=== PATIENT | female | born 1950 | race Caucasian/White ===

== ENCOUNTER 2017-08-19 16:52 | Emergency (ER) | payer MEDICARE ==
[2017-08-19 17:10] VITALS: BP 138/88; PULSE 99; O2SAT 99
[2017-08-19] MEDS ORDERED: DELTASONE 20 MG PO ONE (17:13)
[2017-08-19] MEDS ORDERED: Vibramycin 100 MG PO ONE (17:13)
[2017-08-19] MEDS ORDERED: DELTASONE 20 MG ONE (17:16)
[2017-08-19] MEDS ORDERED: Vibramycin 100 MG ONE (17:18)
--- NOTE | 2017-08-19 17:19 | ERPHSYRPT ---
- History of Present Illness Time Seen by Provider: 08/19/17 16:59 Source: patient Patient Subjective Stated Complaint: PT REPORTS SHE HAS BEEN COUGHING FOR THE LAST FEW DAYS-STATES SHE BEGAN COUGHING YELLOW SPUTUM-RUNNING TEMP OF 99-DENIES N/V/D Triage Nursing Assessment: PT PINK WARM ET [id number] TO ED ROOM- CONGESTION NOTED-HARSH COUGH NOTED DURING TRIAGE-NO RETRACTIONS-LUNGS CLEAR Physician History: CC: cough Hx: 67 y/o patient of Dr Rc Seaman with cough for a few days, rattling. No fever. Has proair inhaler but no spacer. Formerly used inhaled steroid. Symptoms moderate. Not dyspenic. Allergies/Adverse Reactions: ampicillin trihydrate [From Polycillin] Allergy (Verified 08/19/17 16:59) Rash Home Medications: Levothyroxine Sodium 100 Mcg [Synthroid 100 Mcg] 100 mcg PO DAILY 11/05/15 [History] Hx Tetanus, Diphtheria Vaccination/Date Given: No Hx Influenza Vaccination/Date Given: No Hx Pneumococcal Vaccination/Date Given: No Immunizations Up to Date: Yes - Review of Systems Constitutional: Malaise, No Fever, No Chills Eyes: No Symptoms Ears, Nose, & Throat: No Symptoms, Nose Congestion Respiratory: Cough, Wheezing Abdominal/Gastrointestinal: No Vomiting, No Diarrhea All Other Systems: Reviewed and Negative - Past Medical History Pertinent Past Medical History: Yes Neurological History: No Pertinent History ENT History: Cataracts Cardiac History: Hypertension Respiratory History: No Pertinent History Endocrine Medical History: Hypothyroidism Musculoskeletal History: Osteoarthritis GI Medical History: No Pertinent History History: No Pertinent History Psycho-Social History: No Pertinent History Female Reproductive Disorders: Other Other Medical History: Endometrial CA - Past Surgical History Past Surgical History: Yes Neuro Surgical History: No Pertinent History Cardiac: No Pertinent History Respiratory: No Pertinent History Gastrointestinal: Exploratory Laparoscopy Genitourinary: No Pertinent History Musculoskeletal: No Pertinent History Female Surgical History: Hysterectomy Other Surgical History: Scalp Lesion repair,Port Placement,Rectal Fistula Repair , Hysterectomy,Laparascopy, wisdom teeth - Social History Smoking Status: Never smoker Exposure to second hand smoke: No Drug Use: none Patient Lives Alone: No - Female History Hx Now: No - Nursing Vital Signs Nursing Vital Signs: Initial Vital Signs Temperature 97.9 F 08/19/17 17:00 Pulse Rate 99 H 08/19/17 17:00 Respiratory Rate 22 08/19/17 17:00 Blood Pressure 138/88 08/19/17 17:00 O2 Sat by Pulse Oximetry 98 08/19/17 17:00 Pain Scale Pain Intensity 0 - Physical Exam General Appearance: alert Eye Exam: PERRL/EOMI Ears, Nose, Throat Exam: moist mucous membranes Neck Exam: normal inspection, non-tender, supple Respiratory Exam: wheezing (with cough, no distress, good air exchange) Cardiovascular Exam: regular rate/rhythm Gastrointestinal/Abdomen Exam: soft, No tenderness, No distention Back Exam: normal inspection Extremity Exam: normal inspection, normal range of motion Neurologic Exam: alert, oriented x 3, cooperative, sensation nml, No motor deficits Skin Exam: warm, dry, No rash SpO2 Interpretation: normal SpO2: 99 Oxygen Delivery: Room Air - Course Nursing assessment & vital signs reviewed: Yes Ordered Tests: Active Orders 24 hr Category Date Time Status RT Miscellaneous Order ROUTINE RT 08/19/17 17:14 Active Medication Summary Discontinued Medications Generic Name Dose Route Start Last Admin Trade Name Freq PRN Reason Stop Dose Admin Doxycycline Hyclate 100 mg 08/19/17 17:13 Vibramycin 100 Mg PO 08/19/17 17:14 STAT ONE Prednisone 60 mg 08/19/17 17:13 Deltasone 20 Mg PO 08/19/17 17:14 STAT ONE - Progress Progress Note: 08/19/17 17:16 Rx prednisone/doxy. Isntructed on spacer for MDI. Counseled pt/family regarding: diagnosis, need for follow-up - Departure Time of Disposition: 17:16 Departure Disposition: Home Clinical Impression: Acute asthmatic bronchitis Condition: Stable Critical Care Time: No Referrals: MALACHI SEAMAN [Family Provider] - Instructions: Cough -- Adult, Bronchitis Additional Instructions: Rx prednisone. Next dose in AM. Rx albuterol MDI every 4 hours while awake. Rx doxycycline. Next dose in AM. Follow up this week with Dr Seaman. Return for worsening or concerns. Prescriptions: Albuterol Sulfate [Albuterol Sulfate Hfa] 2 puff IH Q4-6HPRN PRN #1 [id number] PRN Reason: cough or wheeze Doxycycline Hyclate 100 mg [Vibramycin 100 MG] 100 mg PO BID #20 tab Prednisone 20 mg [Deltasone 20 mg] 2 tab PO DAILY #10 tablet
== END 2017-08-19 17:24 | disposition home or self-care (01) ==
LOC: ED 16:52
DX: J20.9 Acute bronchitis, unspecified (principal); J45.909 Unspecified asthma, uncomplicated
CPT/HCPCS: 99282; A9270-GY

== ENCOUNTER 2018-09-09 05:52 | Day surgery (SDC) | payer MEDICARE ==
[2018-09-09] MEDS ORDERED: DIPRIVAN 200 MG/20 ML IV ONE (05:53)
[2018-09-09] MEDS ORDERED: Lactated Ringers 1,000 ML IV SCH (06:30)
[2018-09-09 08:41] VITALS: BP 146/78; PULSE 54; O2SAT 100
--- NOTE | 2018-09-09 12:38 | OP ---
SURGERY DATE/TIME: 09/09/2018 0728 PREOPERATIVE DIAGNOSIS: Screening exam. POSTOPERATIVE DIAGNOSIS: Mild sigmoid diverticulosis otherwise normal colon. PROCEDURE: Colonoscopy. SURGEON: Dr. Duggan. ANESTHESIA: MAC. Medications given by anesthesia department. HISTORY: The patient is a 68 year-old white female presenting now for her second colonoscopy. She reports that she had one eleven years ago which she thought she had a couple of polyps. The patient was described the risks of the procedure including the risk of perforation, phlebitis, untoward reaction to medication, bleeding and missed lesions. The patient verbalized her understanding and desired to have the procedure performed. DESCRIPTION OF PROCEDURE: The patient was given the medications by the anesthesia department. She had continuous pulse oximetry, ECG monitoring, intermittent blood pressure monitoring and tidal CO2 monitoring during the examination. She was placed in the left lateral decubitus position. A digital rectal examination was performed and revealed mild external hemorrhoids, normal anal sphincter tone and no masses. The flexible Olympus pediatric colonoscope was used to intubate the rectum. A view of the colon was developed sequentially to the cecum. Upon insertion and withdrawal there was noted mild sigmoid diverticula otherwise no other mucosal lesions being encountered the scope was removed from the patient who tolerated the procedure well and was sent back to OP recovery in good condition. The prep was noted to be fair to good.
== END 2018-09-09 09:02 | disposition home or self-care (01) ==
LOC: SDC 05:52
PROVIDERS: ATTEND Family Medicine
DX: Z12.11 Encounter for screening for malignant neoplasm of colon (principal); K57.30 Diverticulosis of large intestine without perforation or abscess without bleeding; Z86.010 Personal history of colon polyps
CPT/HCPCS: J2704

== ENCOUNTER 2020-04-18 09:44 | Emergency (ER) | payer MEDICARE ==
--- NOTE | 2020-04-18 10:22 | ERPHSYRPT ---
- History of Present Illness Time Seen by Provider: 04/18/20 10:16 Source: patient, family Exam Limitations: no limitations Patient Subjective Stated Complaint: wasp sting to R hand Triage Nursing Assessment: pt to ED with wasp sting to R top of hand that occurred sunday. states not really painful unless moving and itching has subsided. red and swollen on assessment. warm to touch. pt reports redness is "moving up and down from where it was Sunday." no new sx. no allergies to bee/wasp stings to report Physician History: no prior hx of beesting allergy and no resp symptoms or difficulties swallowing. right hand is swollen and some erythema- neuro vas and tendon function intact; tendon fxn intqact no pain with stretching of compartment by flex/ext of tendons/fingers; swollowing saliva OK in ER nontender adn no hx trauma; Occurred: days ago Method of Injury: other (wasp sting) Quality: constant, throbbing Severity of Pain-Max: moderate Severity of Pain-Current: moderate Extremities Pain Location: wrist: right, hand: right Modifying Factors: Improves With: immobilization, movement Associated Symptoms: none Allergies/Adverse Reactions: ampicillin trihydrate [From Polycillin] Allergy (Verified 04/18/20 09:56) Rash Home Medications: Levothyroxine Sodium 100 Mcg [Synthroid 100 Mcg] 100 mcg PO DAILY 11/05/15 [History] Loratadine 10 mg [Claritin 10 mg] 10 mg PO Q12H PRN PRN 09/04/18 [History] Hx Tetanus, Diphtheria Vaccination/Date Given: No Hx Influenza Vaccination/Date Given: Yes Hx Pneumococcal Vaccination/Date Given: No Immunizations Up to Date: Yes Travel Risk - International Travel Have you traveled outside of the country in past 3 weeks: No - Coronavirus Screening Are you exhibiting any of the following symptoms?: No Close contact with a COVID-19 positive Pt in past 14-21 Days: No - Review of Systems Constitutional: No Fever, No Chills Eyes: No Symptoms Ears, Nose, & Throat: No Symptoms Respiratory: No Cough, No Dyspnea Cardiac: No Chest Pain, No Edema, No Syncope Abdominal/Gastrointestinal: No Abdominal Pain, No Nausea, No Vomiting, No Diarrhea Genitourinary Symptoms: No Dysuria Musculoskeletal: No Back Pain, No Neck Pain Skin: Other (swollen right hand/wrist with erythema), No Rash Neurological: No Dizziness, No Focal Weakness, No Sensory Changes Psychological: No Symptoms Endocrine: No Symptoms Hematologic/Lymphatic: No Symptoms Immunological/Allergic: No Symptoms All Other Systems: Reviewed and Negative - Past Medical History Pertinent Past Medical History: Yes Neurological History: No Pertinent History ENT History: Cataracts Cardiac History: Hypertension Respiratory History: No Pertinent History Endocrine Medical History: Hypothyroidism Musculoskeletal History: No Pertinent History GI Medical History: No Pertinent History History: No Pertinent History Psycho-Social History: No Pertinent History Female Reproductive Disorders: Other Other Medical History: Endometrial CA - Past Surgical History Past Surgical History: Yes Neuro Surgical History: No Pertinent History Cardiac: No Pertinent History Respiratory: No Pertinent History Gastrointestinal: Exploratory Laparoscopy Genitourinary: No Pertinent History Musculoskeletal: No Pertinent History Female Surgical History: Hysterectomy Other Surgical History: Scalp Lesion repair,Port Placement,Rectal Fistula Repair, Hysterectomy,Laparascopy, wisdom teeth - Social History Smoking Status: Never smoker Exposure to second hand smoke: No Drug Use: none Patient Lives Alone: No - Female History Hx Now: No - Nursing Vital Signs Nursing Vital Signs: Initial Vital Signs Temperature 98.0 F 04/18/20 09:50 Pulse Rate 62 04/18/20 09:50 Respiratory Rate 18 04/18/20 09:50 Blood Pressure 153/82 04/18/20 09:50 O2 Sat by Pulse Oximetry 98 04/18/20 09:50 Pain Scale Pain Intensity 0 - Physical Exam General Appearance: no apparent distress, alert Eyes, Ears, Nose, Throat Exam: moist mucous membranes Neck Exam: non-tender, supple Cardiovascular/Respiratory Exam: chest non-tender, normal breath sounds, regular rate/rhythm, no respiratory distress Abdominal Exam: non-tender, No guarding Back Exam: normal inspection, No vertebral tenderness Shoulder Exam: normal inspection, non-tender, no evidence of injury, normal ROM Elbow/Forearm Exam: normal inspection, non-tender, no evidence of injury, normal ROM, swelling (at forearm) Wrist Exam: no evidence of injury, normal ROM, swelling, No bone tenderness Hand Exam: normal ROM, swelling, No bone tenderness, No soft tissue tenderness DTR - Upper Extremity Exam: bicep (R): 2+, bicep (L): 2+, tricep (R): 2+, tricep (L): 2+ Neuro/Tendon Exam: normal sensation, normal motor functions, normal tendon functions Mental Status Exam: alert, oriented x 3, cooperative Skin Exam: normal color, warm, dry SpO2: 98 - Course Nursing assessment & vital signs reviewed: Yes - Progress Progress: improved, re-examined Counseled pt/family regarding: diagnosis, need for follow-up - Departure Departure Disposition: Home Clinical Impression: localized beesting reaction right hand/a Condition: Good Critical Care Time: No Referrals: CLAUDE VALLE [Primary Care Provider] - Instructions: Insect Bites and Stings (DC) Additional Instructions: followup with your Dr. for recheck next week or return meantime if not improving , short of breath, trouble swallowing , numbness or increased pain, or other concerns. followup your blood pressure with your Dr. This reaction may be a delayed allergy or a normal delayed reaction, but you should be tested with your Dr. for beesting type allergy to make sure. Prescriptions: hydrOXYzine pamoate [Vistaril] 25 mg PO Q6HPRN PRN #20 capsule PRN Reason: Itching Methylprednisolone Packet [Medrol Dosepack] 4 mg PO UD #1 packet
[2020-04-18] MEDS ORDERED: Adacel Vial IM ONE ×2 (10:37→10:45)
[2020-04-18 10:54] VITALS: BP 132/74; PULSE 69; O2SAT 97
== END 2020-04-18 11:00 | disposition home or self-care (01) ==
LOC: ED 09:44
DX: M79.89 Other specified soft tissue disorders (principal); T63.441A Toxic effect of venom of bees, accidental (unintentional), initial encounter; Y92.9 Unspecified place or not applicable; Z79.899 Other long term (current) drug therapy; I10 Essential (primary) hypertension; E03.9 Hypothyroidism, unspecified
CPT/HCPCS: 90471; 90715; 99283